=== PATIENT | female | born 1955 | race Caucasian/White ===

== ENCOUNTER 2019-05-09 00:42 | Outpatient (CLI) | payer OTHER, SELFPAY ==
--- NOTE | 2019-05-09 13:17 | DI.CTLCSR_ITS ---
SYMPTOM/DIAGNOSIS: Z87.891 SCREENING FOR LUNG CA DUE TO H/O TOBACCO USE, QUIT [address] CHEST: CT scan of the chest was performed according to the Lung Cancer screening protocol. There are no priors for comparison. There is atherosclerosis of the thoracic aorta but no aneurysmal dilatation seen. Heart size is within normal limits. No significant pericardial effusion seen. Coronary artery calcifications are present. No significant thoracic adenopathy, pleural effusion or pneumothorax is identified. Upper abdominal images show the patient is status post cholecystectomy. Surgical clips are seen near the gastroesophageal junction suggesting a prior gastri bypass surgery. Incidental note is made of an azygous lobe. There are a few scattered noncalcified pulmonary nodules. The largest is seen in the lateral aspect of the right upper lobe measuring 0.3 cm. There is a 0.3 cm pulmonary nodule in the left upper lobe laterally. There is scarring or atelectasis in the lung bases. No focal consolidating infiltrate is seen. The tracheobronchial tree is unremarkable. Degenerative changes are seen in the spine. IMPRESSION: Noncalcified pulmonary nodules. Category 2. Lung-RAD Category: Lung RADS Category 2- Benign Appearance/Behavior
== END 2019-05-09 01:02 ==
PROVIDERS: PCP Nurse Practitioner; Visit Provider Nurse Practitioner
DX: Z12.2 Encounter for screening for malignant neoplasm of respiratory organs (principal); Z87.891 Personal history of nicotine dependence; R91.8 Other nonspecific abnormal finding of lung field; Z90.49 Acquired absence of other specified parts of digestive tract; Z98.84 Bariatric surgery status
CPT/HCPCS: G0297